=== PATIENT | male | born 1975 | race Caucasian/White ===

== ENCOUNTER 2016-03-05 08:19 | Emergency (ER) | payer SELFPAY ==
[~2016-03-05] VITALS: Ht 172.7 cm; Wt 77.0 kg
[2016-03-05 08:24] VITALS: BP 124/85; PULSE 98; RESP 16; TEMP 98.2; O2SAT 97
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
[2016-03-05 11:07] VITALS: BP 138/84; PULSE 64; RESP 16; O2SAT 97
[2016-03-05] MEDS ORDERED: MOBI15TA PO (11:14)
[2016-03-05] MEDS ORDERED: ULTR50TA5 PO (11:14)
== END 2016-03-05 11:48 | disposition home or self-care (01) ==
LOC: PHED 08:19 → PHEFT 11:48
DX: S42.021A Displaced fracture of shaft of right clavicle, initial encounter for closed fracture (principal); S09.90XA Unspecified injury of head, initial encounter; S16.1XXA Strain of muscle, fascia and tendon at neck level, initial encounter; S39.012A Strain of muscle, fascia and tendon of lower back, initial encounter; S20.219A Contusion of unspecified front wall of thorax, initial encounter; R51 Headache; M25.511 Pain in right shoulder; M25.512 Pain in left shoulder; V17.4XXA Pedal cycle driver injured in collision with fixed or stationary object in traffic accident, initial encounter; Y93.55 Activity, bike riding; Y92.9 Unspecified place or not applicable
CPT/HCPCS: 70450; 71010; 72072; 72100; 72125; 73030

== ENCOUNTER 2016-06-07 01:50 | Emergency (ER) | payer SELFPAY ==
[~2016-06-07] VITALS: Ht 170.2 cm; Wt 82.0 kg
[~2016-06-07 01:50] MED LIST: MOBI15TA PO; ULTR50TA5 PO
[2016-06-07 01:54] VITALS: BP 166/100; PULSE 108; RESP 14; TEMP 98.8; O2SAT 96
[2016-06-07 02:48] LABS: AUTOMATED NEUTROPHIL # 2.5 TH/MM3 (1.8-7.7); BASOPHIL # 0.1 TH/MM3 (0-0.2); BASOPHIL % 1.3 % (0.0-2.0); EOSINOPHIL # 0.3 TH/MM3 (0-0.4); EOSINOPHIL % 5.2 % (0.0-4.0); HEMATOCRIT 43.7 % (39.0-51.0); HEMO FLAGS DIFF FINAL; LYMPH % 36.8 % (9.0-44.0); MEAN CELL VOLUME 92.7 FL (80.0-100.0); MEAN CORPUSCULAR HEMOGLOBIN 31.8 PG (27.0-34.0); MEAN CORPUSCULAR HGB CONC 34.3 % (32.0-36.0); MONO % 10.8 % (0.0-8.0); NEUT % 45.9 % (16.0-70.0); PLATELET COUNT 150 TH/MM3 (150-450); RED BLOOD COUNT 4.72 MIL/MM3 (4.50-5.90); RED CELL DISTRIBUTION WIDTH 13.5 % (11.6-17.2); WHITE BLOOD COUNT 5.4 TH/MM3 (4.0-11.0)
[2016-06-07 03:04] LABS: AMPHETAMINE, URINE NEG (NEG); BARBITURATES, URINE NEG (NEG); COCAINE, URINE NEG (NEG)
[2016-06-07 03:08] LABS: ANION GAP 11 MEQ/L (5-15); AST (GOT) 155 U/L (15-37); BICARBONATE 28.3 MEQ/L (21.0-32.0); BLOOD UREA NITROGEN 8 MG/DL (7-18); CHLORIDE 103 MEQ/L (98-107); GLOMERULAR FILTRATION RATE 122 ML/MIN (>89); POTASSIUM 3.7 MEQ/L (3.5-5.1); SODIUM (NA) 142 MEQ/L (136-145)
[2016-06-07 03:11] LABS: ALKALINE PHOSPHATASE 130 U/L (45-117); ALT (GPT) 96 U/L (12-78); TOTAL BILIRUBIN ADULT 0.4 MG/DL (0.2-1.0)
--- NOTE | 2016-06-07 03:11 | PD ---
HPI Chief Complaint: Psychiatric Symptoms Time Seen by Provider: 02:21 Travel History International Travel<30 days: No Contact w/Intl Traveler<30days: No Traveled to known affect area: No History of Present Illness HPI This is a 41-year-old male who presents to the emergency department reporting that he's been feeling depressed and anxious. He says that his girlfriend is with his son. He says that she's been driving him crazy. He says he' s been feeling depressed, having trouble sleeping and has trouble concentrating , and he's been drinking alcohol to try to deal with it. Says he has a history of anxiety in the past and he used to be on anxiety medications but he is not been for a while. He denies any suicidal ideation. He says that his girlfriend told him to tell us that he wants to kill himself because that will get him more help but he honestly doesn't want to hurt himself he just wants help for his depression. [facility] Past Medical History Anxiety: Yes Diminished Hearing: No Immunizations Current: Yes Tetanus Vaccination: Unknown Influenza Vaccination: No Past Surgical History Surgical History: No Previous Surgery Social History Alcohol Use: Yes (USUALLY DAILY) Tobacco Use: No Substance Use: No Allergies-Medications (Allergen,Severity, Reaction): Coded Allergies: Penicillin (Verified Allergy, Severe, HIVES, 06/07/16) Reported Meds & Prescriptions Reported Meds & Active Scripts Active No Active Prescriptions or Reported Medications Review of Systems Except as stated in HPI: all other systems reviewed are Neg Physical Exam Narrative GENERAL:Well appearing, no acute distress SKIN: Focused skin assessment warm and dry. HEAD: Atraumatic. Normocephalic. EYES: Pupils equal and round. No injection or drainage. ENT: Moist mucous membranes NECK: Trachea midline. CARDIOVASCULAR: Regular rate and rhythm. No murmur appreciated. RESPIRATORY: Clear to auscultation. Breath sounds equal bilaterally. GASTROINTESTINAL: Abdomen soft, non-tender, nondistended. MUSCULOSKELETAL: No obvious deformities. NEUROLOGICAL: Awake and alert. No obvious cranial nerve deficits. Moving all extremities. PSYCHIATRIC: Tearful, depressed mood, no suicidal ideation or homicidal ideation. Data Data Last Documented VS Vital Signs Date Time Temp Pulse Resp B/P Pulse Ox O2 Delivery O2 Flow Rate FiO2 06/07/16 01:54 98.8 108 14 166/100 96 Room Air Orders Complete Blood Count With Diff (06/07/16 02:21) Psych Screen (06/07/16 02:21) Drug Screen, Random Urine (06/07/16 02:21) Alcohol (Ethanol) (06/07/16 02:21) Comprehensive Metabolic Panel (06/07/16 02:35) Labs Laboratory Tests Test 06/07/16 02:35 White Blood Count 5.4 TH/MM3 Red Blood Count 4.72 MIL/MM3 Hemoglobin 15.0 GM/DL Hematocrit 43.7 % Mean Corpuscular Volume 92.7 FL Mean Corpuscular Hemoglobin 31.8 PG Mean Corpuscular Hemoglobin 34.3 % Concent Red Cell Distribution Width 13.5 % Platelet Count 150 TH/MM3 Mean Platelet Volume 7.8 FL Neutrophils (%) (Auto) 45.9 % Lymphocytes (%) (Auto) 36.8 % Monocytes (%) (Auto) 10.8 % Eosinophils (%) (Auto) 5.2 % Basophils (%) (Auto) 1.3 % Neutrophils # (Auto) 2.5 TH/MM3 Lymphocytes # (Auto) 2.0 TH/MM3 Monocytes # (Auto) 0.6 TH/MM3 Eosinophils # (Auto) 0.3 TH/MM3 Basophils # (Auto) 0.1 TH/MM3 CBC Comment DIFF FINAL Differential Comment Sodium Level 142 MEQ/L Potassium Level 3.7 MEQ/L Chloride Level 103 MEQ/L Carbon Dioxide Level 28.3 MEQ/L Anion Gap 11 MEQ/L Blood Urea Nitrogen 8 MG/DL Creatinine 0.71 MG/DL Estimat Glomerular Filtration 122 ML/MIN Rate Random Glucose 104 MG/DL Calcium Level 8.7 MG/DL Total Bilirubin 0.4 MG/DL Aspartate Amino Transf 155 U/L (AST/SGOT) Alanine Aminotransferase 96 U/L (ALT/SGPT) Alkaline Phosphatase 130 U/L Total Protein 8.5 GM/DL Albumin 4.5 GM/DL Urine Opiates Screen NEG Urine Barbiturates Screen NEG Urine Amphetamines Screen NEG Urine Benzodiazepines Screen NEG Urine Cocaine Screen NEG Urine Cannabinoids Screen NEG Ethyl Alcohol Level 375 MG/DL MDM Medical Decision Making Medical Screen Exam Complete: Yes Emergency Medical Condition: Yes Interpretation(s) afebrile, tachycardic, hypertensive No leukocytosis Transaminitis Alcohol level is 375 Differential Diagnosis Alcohol intoxication, depression, bipolar disorder, substance intoxication Narrative Course This is a 41-year-old male who presents to the emergency department for evaluation of depression. He is acutely intoxicated with alcohol. Labs are obtained which were reassuring except for a transaminitis and an alcohol level is 375. I suspect the patient is presenting with substance-induced mood disorder. Patient will be observed and reassessed once sober. Scripts No Active Prescriptions or Reported Meds Fior Lagunas MD Jun 07, 2016 03:11
[2016-06-07 12:35] VITALS: BP 160/92; PULSE 101; RESP 20; TEMP 98.8; O2SAT 96
[2016-06-07] MEDS ORDERED: LORazepam 2 MG TAB PO PRN (14:30)
[2016-06-07] MEDS ORDERED: FLUMAZENIL 0.5 MG/5 ML VIAL IV PUSH PRN (14:30)
[2016-06-07] MEDS ORDERED: LORazepam 2 MG/ML VIAL IV PUSH PRN ×4 (14:30)
[2016-06-07] MEDS ORDERED: LORazepam 1 MG TAB PO PRN (14:30)
== END 2016-06-07 17:54 | disposition home or self-care (01) ==
LOC: NEPC 01:50 → NEPJ 17:54
DX: F10.94 Alcohol use, unspecified with alcohol-induced mood disorder (principal)
CPT/HCPCS: 80053; 80307; 85025; 99284

== ENCOUNTER 2016-08-05 14:05 | Emergency (ER) | payer OTHER ==
[~2016-08-05] VITALS: Ht 172.7 cm; Wt 77.0 kg
[2016-08-05 14:12] VITALS: BP 144/83; PULSE 105; RESP 18; TEMP 98.3; O2SAT 94
[2016-08-05 14:17] VITALS: BP 144/83; PULSE 98; RESP 18; O2SAT 95
[2016-08-05 14:52] LABS: AUTOMATED NEUTROPHIL # 1.6 TH/MM3 (1.8-7.7); BASOPHIL # 0.2 TH/MM3 (0-0.2); BASOPHIL % 3.1 % (0.0-2.0); EOSINOPHIL # 0.4 TH/MM3 (0-0.4); EOSINOPHIL % 6.9 % (0.0-4.0); HEMO FLAGS DIFF FINAL; LYMPH % 47.9 % (9.0-44.0); LYMPHOCYTE # 2.5 TH/MM3 (1.0-4.8); MEAN CELL VOLUME 94.5 FL (80.0-100.0); MEAN CORPUSCULAR HEMOGLOBIN 33.2 PG (27.0-34.0); MEAN CORPUSCULAR HGB CONC 35.1 % (32.0-36.0); MONO % 10.5 % (0.0-8.0); NEUT % 31.6 % (16.0-70.0); PLATELET COUNT 250 TH/MM3 (150-450); RED BLOOD COUNT 4.23 MIL/MM3 (4.50-5.90); RED CELL DISTRIBUTION WIDTH 14.8 % (11.6-17.2); WHITE BLOOD COUNT 5.1 TH/MM3 (4.0-11.0)
--- NOTE | 2016-08-05 14:55 | PD ---
HPI Chief Complaint: Psychiatric Symptoms Time Seen by Provider: 14:17 Travel History International Travel<30 days: No Contact w/Intl Traveler<30days: No Traveled to known affect area: No History of Present Illness HPI 41-year-old man, brought into the emergency department under a [place] act by [employer] [employer] because he apparently sent text messages to his girlfriend to kill himself. He states he's been drinking today, he works 6 days a week, and just "couldn't take it anymore". He states that he sent his go for messages that were "just shit talkin". Denies any attempt at self-harm. Does not any guns. His never tried to harm himself before. Is a history of anxiety but no other mental health treatment. History Past Medical History Narrative Medical Anxiety Past Surgical History Surgical History: No Previous Surgery Social History Alcohol Use: Yes (USUALLY DAILY) Tobacco Use: No Allergies-Medications (Allergen,Severity, Reaction): Coded Allergies: Penicillin (Verified Allergy, Severe, HIVES, 08/05/16) Reported Meds & Prescriptions Reported Meds & Active Scripts Active No Active Prescriptions or Reported Medications Review of Systems Except as stated in HPI: all other systems reviewed are Neg Physical Exam Narrative GENERAL: Well-appearing 41-year-old man, inebriated, no acute distress. SKIN: Focused skin assessment warm/dry. NECK: Trachea midline. No JVD. CARDIOVASCULAR: Regular rate and rhythm. No murmur appreciated. RESPIRATORY: No accessory muscle use. Clear to auscultation. Breath sounds equal bilaterally. GASTROINTESTINAL: Abdomen soft, non-tender, nondistended. Hepatic and splenic margins not palpable. MUSCULOSKELETAL: No obvious deformities. No clubbing. No cyanosis. No edema. NEUROLOGICAL: Awake and alert. No obvious cranial nerve deficits. Motor grossly within normal limits. Normal speech. PSYCHIATRIC: Mildly inebriated. Little bit labile affect. Insight and judgment fair. Data Data Last Documented VS Vital Signs Date Time Temp Pulse Resp B/P Pulse Ox O2 Delivery O2 Flow Rate FiO2 08/05/16 14:17 98 18 144/83 95 Room Air 08/05/16 14:12 98.3 Orders Complete Blood Count With Diff (08/05/16 14:26) Comprehensive Metabolic Panel (08/05/16 14:26) Psych Screen (08/05/16 14:26) Drug Screen, Random Urine (08/05/16 14:26) Alcohol (Ethanol) (08/05/16 14:26) MDM Medical Decision Making Medical Screen Exam Complete: Yes Emergency Medical Condition: Yes Differential Diagnosis Substance-induced mood disorder, intoxication, suicidality, other Narrative Course Medical decision making 41-year-old man, sent threatening text messages to his girlfriend, but denies suicidality. We'll check labs, no somatic complaints. Patient's medical clear for psychiatric evaluation. Scripts No Active Prescriptions or Reported Meds Heber Garcia MD Aug 05, 2016 14:55
[2016-08-05 15:01] LABS: AMPHETAMINE, URINE NEG (NEG); BARBITURATES, URINE NEG (NEG); COCAINE, URINE NEG (NEG)
[2016-08-05 15:21] LABS: ALT (GPT) 29 U/L (12-78); ANION GAP 13 MEQ/L (5-15); AST (GOT) 27 U/L (15-37); BICARBONATE 25.1 MEQ/L (21.0-32.0); BLOOD UREA NITROGEN 8 MG/DL (7-18); CHLORIDE 107 MEQ/L (98-107); GLOMERULAR FILTRATION RATE 129 ML/MIN (>89); POTASSIUM 3.7 MEQ/L (3.5-5.1); SODIUM (NA) 145 MEQ/L (136-145)
[2016-08-05 15:25] LABS: ALKALINE PHOSPHATASE 73 U/L (45-117); TOTAL BILIRUBIN ADULT 0.2 MG/DL (0.2-1.0)
== END 2016-08-05 16:31 | disposition home or self-care (01) ==
LOC: NEPD 14:05
DX: Z76.89 Persons encountering health services in other specified circumstances (principal); F10.129 Alcohol abuse with intoxication, unspecified; Y90.8 Blood alcohol level of 240 mg/100 ml or more
CPT/HCPCS: 80053; 80307; 85025; 99283